=== PATIENT | male | born 1950 | race Asian ===

== ENCOUNTER 2021-07-09 07:30 | Inpatient (IN) | payer MEDICARE, OTHER ==
[~2021-07-09] VITALS: Ht 165.1 cm; Wt 64.5 kg
[2021-07-09 08:22] LABS: COVID AG,FIA SOURCE NASAL SWAB
[2021-07-09 08:24] LABS: BASOPHILS % (AUTO) 0.7 % (0.0-2.0); EOSINOPHILS % (AUTO) 3.4 % (1.0-6.0); HEMATOCRIT 46.8 % (41-53); HEMOGLOBIN 15.6 g/dL (13.5-17.5); LYMPHOCYTES # (AUTO) 0.9 K/uL (1.0-4.8); LYMPHOCYTES % (AUTO) 14.7 % (22.0-44.0); MEAN CORPUSCULAR HEMOGLOBIN 32.1 pg (26.0-34.0); MEAN CORPUSCULAR HGB CONC 33.3 G/dL (31.0-37.0); MEAN CORPUSCULAR VOLUME 97 fL (80-100); MONOCYTES # (AUTO) 0.5 K/uL (0.1-1.0); MONOCYTES % (AUTO) 7.3 % (2.0-9.0); NEUTROPHILS # (AUTO) 4.7 K/uL (1.8-7.7); NEUTROPHILS % (AUTO) 73.9 % (40.0-70.0); PLATELET COUNT (AUTO) 237 K/uL (150-450); RED BLOOD CELL COUNT(AUTO) 4.85 MIL/uL (4.50-5.90); RED CELL DISTRIBUTION WIDTH 13.9 % (11.5-14.5)
[2021-07-09 08:30] LABS: POTASSIUM 3.8 mmol/L (3.5-5.1)
[2021-07-09 08:35] LABS: ALBUMIN 3.9 g/dL (3.4-5.0); BILIRUBIN,TOTAL 1.1 mg/dL (0.1-1.0)
[2021-07-09] MEDS ORDERED: ASPIRIN 81 MG CHEWABLE TABLET PO ONE (08:45)
[2021-07-09] MEDS ORDERED: METOPROLOL TARTRATE 50 MG TABLET PO ONE (08:45)
[2021-07-09] MEDS ORDERED: ACETAMINOPHEN 325 MG TABLET PO PRN (10:30)
[2021-07-09] MEDS ORDERED: MAGNESIUM HYDROXIDE SUSPENSION 30 ML UDCUP PO PRN (10:30)
[2021-07-09] MEDS ORDERED: MORPHINE SULFATE 2 MG/ML SYRINGE IVP PRN (10:30)
[2021-07-09] MEDS ORDERED: BISACODYL 10 MG RECTAL RECTAL SUPPOSITORY PR PRN (10:30)
[2021-07-09] MEDS ORDERED: ONDANSETRON HCL 4 MG/2 ML VIAL IVP PRN (10:30)
[2021-07-09] MEDS ORDERED: 0.9% SODIUM CHLORIDE 10 ML SYRINGE IVP PRN (10:30)
[2021-07-09] MEDS ORDERED: ZOLPIDEM TARTRATE 5 MG TABLET PO PRN (10:30)
[2021-07-09] MEDS ORDERED: HYDROCODONE/ACETAMINOPHEN 5-325 MG TABLET PO PRN (10:30)
[2021-07-09 11:07] VITALS: BP 119/87
[2021-07-09 15:26] VITALS: BP 128/96
[2021-07-09] MEDS: DEXTROSE 5%-0.45% SODIUM CHL 1,000 ML IV SCH (15:38)
[2021-07-09] MEDS: HEPARIN SODIUM,PORCINE 5,000 UNITS/ML VIAL SQ SCH ×2 (15:39→23:37)
[2021-07-09 19:31] VITALS: BP 130/97
[2021-07-09] MEDS: DOCUSATE SODIUM 100 MG CAPSULE PO SCH (19:55)
[2021-07-09 22:42] LABS: APPEARANCE,URINE CLEAR (CLEAR); BILIRUBIN,URINE NEGATIVE (NEGATIVE); GLUCOSE, URINE (UA) TRACE mg/dL (NEGATIVE); KETONES,URINE NEGATIVE (NEGATIVE); LEUKOCYTE ESTERASE ,URINE NEGATIVE (NEGATIVE); NITRATE,URINE NEGATIVE (NEGATIVE); OCCULT BLOOD,URINE SMALL (NEGATIVE); PROTEIN,URINE 300-600,SEE CONFIRM mg/dL (NEGATIVE); SPECIFIC GRAVITIY, URINE 1.026 (1.003-1.030); UROBILINOGEN,URINE <=1.0 mg/dL (<=1.0)
[2021-07-09 22:47] LABS: AMPHET/METH SCREEN,URINE NEGATIVE (NEGATIVE); BARBITURATE SCREEN, URINE NEGATIVE (NEGATIVE); BENZODIAZEPINES SCREEN,URINE NEGATIVE (NEGATIVE); CANNABINOID SCREEN,URINE NEGATIVE (NEGATIVE); COCAINE SCREEN,URINE NEGATIVE (NEGATIVE); METHADONE SCREEN, URINE NEGATIVE (NEGATIVE); OPIATE SCREEN,URINE NEGATIVE (NEGATIVE); PHENCYCLIDINE SCREEN,URINE NEGATIVE (NEGATIVE); SULFOSALICYLIC ACID,URINE 4+ (Negative)
[2021-07-09 22:53] LABS: RBC,URINE 0-2 /HPF (0-2)
[2021-07-09 22:54] LABS: AMORPHOUS SEDIMENT,UR Rare /LPF (None Seen); BACTERIA,URINE Rare /HPF (None Seen); MUCUS,URINE Rare LPF (None Seen); SQUAMOUS EPITHELIAL CELL,UR Few /LPF (None Seen); WBC,URINE 0-2 /HPF (0-5)
[2021-07-09 23:29] VITALS: BP 121/86
[2021-07-10 03:35] VITALS: BP 132/88
[2021-07-10] MEDS: DEXTROSE 5%-0.45% SODIUM CHL 1,000 ML IV SCH ×2 (04:26→18:55)
[2021-07-10 07:20] LABS: BASOPHILS % (AUTO) 0.9 % (0.0-2.0); EOSINOPHILS % (AUTO) 2.8 % (1.0-6.0); HEMATOCRIT 47.1 % (41-53); HEMOGLOBIN 15.6 g/dL (13.5-17.5); LYMPHOCYTES # (AUTO) 1.2 K/uL (1.0-4.8); LYMPHOCYTES % (AUTO) 20.3 % (22.0-44.0); MEAN CORPUSCULAR HEMOGLOBIN 32.1 pg (26.0-34.0); MEAN CORPUSCULAR HGB CONC 33.1 G/dL (31.0-37.0); MEAN CORPUSCULAR VOLUME 97 fL (80-100); MONOCYTES # (AUTO) 0.6 K/uL (0.1-1.0); MONOCYTES % (AUTO) 9.4 % (2.0-9.0); NEUTROPHILS % (AUTO) 66.6 % (40.0-70.0); PLATELET COUNT (AUTO) 223 K/uL (150-450); RED BLOOD CELL COUNT(AUTO) 4.85 MIL/uL (4.50-5.90); RED CELL DISTRIBUTION WIDTH 14.1 % (11.5-14.5)
[2021-07-10 07:38] LABS: ALBUMIN 3.6 g/dL (3.4-5.0); BILIRUBIN,TOTAL 1.3 mg/dL (0.1-1.0); CREATININE 1.87 mg/dL (0.60-1.30); MAGNESIUM 2.2 mg/dL (1.80-2.40); PHOSPHORUS 3.4 mg/dL (2.5-4.9); POTASSIUM 3.9 mmol/L (3.5-5.1); TOTAL PROTEIN, SERUM 7.4 g/dL (6.4-8.2)
[2021-07-10 07:51] VITALS: BP 144/103
[2021-07-10] MEDS: PANTOPRAZOLE SODIUM 40 MG DR TABLET PO SCH (08:37)
[2021-07-10] MEDS: DOCUSATE SODIUM 100 MG CAPSULE PO SCH ×2 (08:37→20:00)
[2021-07-10] MEDS: HEPARIN SODIUM,PORCINE 5,000 UNITS/ML VIAL SQ SCH ×3 (08:38→23:54)
[2021-07-10] MEDS ORDERED: FUROSEMIDE 20 MG/2 ML VIAL IVP SCH (09:00)
[2021-07-10 12:04] VITALS: BP 128/96
[2021-07-10 15:37] VITALS: BP 149/115
[2021-07-10 19:20] VITALS: BP 142/112
[2021-07-10 23:45] VITALS: BP 138/102
[2021-07-11 03:45] VITALS: BP 144/102
[2021-07-11 06:27] LABS: BASOPHILS % (AUTO) 0.6 % (0.0-2.0); EOSINOPHILS % (AUTO) 1.7 % (1.0-6.0); HEMATOCRIT 46.2 % (41-53); HEMOGLOBIN 15.1 g/dL (13.5-17.5); LYMPHOCYTES # (AUTO) 1.1 K/uL (1.0-4.8); LYMPHOCYTES % (AUTO) 15.7 % (22.0-44.0); MEAN CORPUSCULAR HEMOGLOBIN 31.9 pg (26.0-34.0); MEAN CORPUSCULAR HGB CONC 32.8 G/dL (31.0-37.0); MEAN CORPUSCULAR VOLUME 97 fL (80-100); MONOCYTES # (AUTO) 0.7 K/uL (0.1-1.0); MONOCYTES % (AUTO) 9.5 % (2.0-9.0); NEUTROPHILS % (AUTO) 72.5 % (40.0-70.0); PLATELET COUNT (AUTO) 215 K/uL (150-450); RED BLOOD CELL COUNT(AUTO) 4.74 MIL/uL (4.50-5.90); RED CELL DISTRIBUTION WIDTH 14.3 % (11.5-14.5)
[2021-07-11 06:34] LABS: CALCIUM, TOTAL 8.5 mg/dL (8.8-10.5); CREATININE 1.96 mg/dL (0.60-1.30); POTASSIUM 4.1 mmol/L (3.5-5.1)
[2021-07-11 06:35] LABS: HEMOGLOBIN A1C 5.8 % (3.8-5.6)
[2021-07-11] MEDS: DOCUSATE SODIUM 100 MG CAPSULE PO SCH ×2 (07:35→20:35)
[2021-07-11] MEDS: DEXTROSE 5%-0.45% SODIUM CHL 1,000 ML IV SCH (07:36)
[2021-07-11] MEDS: HEPARIN SODIUM,PORCINE 5,000 UNITS/ML VIAL SQ SCH ×2 (07:36→15:26)
[2021-07-11] MEDS: PANTOPRAZOLE SODIUM 40 MG DR TABLET PO SCH (07:36)
[2021-07-11 07:50] VITALS: BP 146/101
[2021-07-11 11:38] VITALS: BP 150/110
[2021-07-11] MEDS ORDERED: AmLODIPine BESYLATE 5 MG TABLET PO SCH (13:15)
[2021-07-11] MEDS ORDERED: LOPERAMIDE HCL 2 MG CAPSULE PO PRN (13:45)
[2021-07-11] MEDS ORDERED: SODIUM CHLORIDE 0.9% 500 ML IV ONE (13:45)
[2021-07-11 16:01] VITALS: BP 142/112
[2021-07-11 20:12] VITALS: BP 136/94
[2021-07-11] MEDS: CARVEDILOL 3.125 MG TABLET PO SCH (20:35)
[2021-07-11 23:47] VITALS: BP 107/72
[2021-07-12] MEDS: HEPARIN SODIUM,PORCINE 5,000 UNITS/ML VIAL SQ SCH ×2 (00:12→08:18)
[2021-07-12 05:05] VITALS: BP 133/89
[2021-07-12 06:47] LABS: BASOPHILS % (AUTO) 1.4 % (0.0-2.0); EOSINOPHILS % (AUTO) 3.1 % (1.0-6.0); HEMATOCRIT 44.7 % (41-53); HEMOGLOBIN 14.8 g/dL (13.5-17.5); LYMPHOCYTES # (AUTO) 0.6 K/uL (1.0-4.8); LYMPHOCYTES % (AUTO) 8.2 % (22.0-44.0); MEAN CORPUSCULAR HGB CONC 33.2 G/dL (31.0-37.0); MEAN CORPUSCULAR VOLUME 97 fL (80-100); MONOCYTES # (AUTO) 0.5 K/uL (0.1-1.0); MONOCYTES % (AUTO) 7.6 % (2.0-9.0); NEUTROPHILS # (AUTO) 5.4 K/uL (1.8-7.7); NEUTROPHILS % (AUTO) 79.7 % (40.0-70.0); PLATELET COUNT (AUTO) 200 K/uL (150-450); RED BLOOD CELL COUNT(AUTO) 4.63 MIL/uL (4.50-5.90); RED CELL DISTRIBUTION WIDTH 14.3 % (11.5-14.5)
[2021-07-12 07:06] LABS: CALCIUM, TOTAL 8.7 mg/dL (8.8-10.5); CHOL/HDL RATIO 6.2 (4.2-7.3); CREATININE 1.86 mg/dL (0.60-1.30); POTASSIUM 4.3 mmol/L (3.5-5.1)
[2021-07-12 07:07] LABS: IGM (IMMUNOFIXATION) 28 mg/dL (15-143)
[2021-07-12 07:38] LABS: CHOL/HDL RATIO 6.3 (4.2-7.3)
[2021-07-12 07:49] VITALS: BP 147/106
[2021-07-12] MEDS: CARVEDILOL 3.125 MG TABLET PO SCH (08:18)
[2021-07-12] MEDS: DOCUSATE SODIUM 100 MG CAPSULE PO SCH (08:18)
[2021-07-12] MEDS: PANTOPRAZOLE SODIUM 40 MG DR TABLET PO SCH (08:18)
[2021-07-12] MEDS ORDERED: LOSARTAN POTASSIUM 25 MG TABLET PO SCH (09:00)
[2021-07-12 11:19] VITALS: BP 103/71
[2021-07-12] MEDS ORDERED: CARV3 PO (12:44)
[2021-07-12] MEDS ORDERED: LOSA25TA2 PO (12:44)
[2021-07-12] MEDS ORDERED: ATORVASTATIN CALCIUM 40 MG TABLET PO SCH (14:00)
[2021-07-13 14:06] LABS: ALBUMIN URINE (ELP) 77.3 %
== END 2021-07-12 14:05 | disposition home or self-care (01) | DRG 682 ==
LOC: EMS 07:30 → 5S 09:30
PROVIDERS: ADMIT Internal Medicine; ATTEND Internal Medicine
DX: N17.9 Acute kidney failure, unspecified (principal); I50.23 Acute on chronic systolic (congestive) heart failure; I24.9 Acute ischemic heart disease, unspecified; I13.0 Hypertensive heart and chronic kidney disease with heart failure and stage 1 through stage 4 chronic kidney disease, or unspecified chronic kidney disease; I42.9 Cardiomyopathy, unspecified; K59.00 Constipation, unspecified; E78.5 Hyperlipidemia, unspecified; K40.90 Unilateral inguinal hernia, without obstruction or gangrene, not specified as recurrent; E78.00 Pure hypercholesterolemia, unspecified; Z20.822 Contact with and (suspected) exposure to COVID-19; N18.9 Chronic kidney disease, unspecified; Z91.14 Patient's other noncompliance with medication regimen; Z79.899 Other long term (current) drug therapy
CPT/HCPCS: 74022; 74176; 76770; 80048; 80053; 80061; 80307; 81001; 81002; 82570; 82784; 83036; 83690; 83735; 83880; 84100; 84156; 84166; 84484; 85025; 86160; 86334; 93005; 93306; 99285; J1644; J7040

== ENCOUNTER 2021-07-14 08:31 | Inpatient (IN) | payer MEDICARE, OTHER ==
[~2021-07-14] VITALS: Ht 165.1 cm; Wt 58.8 kg
[~2021-07-14 08:31] MED LIST: CARV3 PO; LOSA25TA2 PO
[2021-07-14 09:28] LABS: BASOPHILS % (AUTO) 1.2 % (0.0-2.0); EOSINOPHILS % (AUTO) 4.4 % (1.0-6.0); HEMATOCRIT 46.2 % (41-53); HEMOGLOBIN 15.2 g/dL (13.5-17.5); LYMPHOCYTES # (AUTO) 1.1 K/uL (1.0-4.8); LYMPHOCYTES % (AUTO) 18.8 % (22.0-44.0); MEAN CORPUSCULAR HEMOGLOBIN 31.9 pg (26.0-34.0); MEAN CORPUSCULAR HGB CONC 32.9 G/dL (31.0-37.0); MEAN CORPUSCULAR VOLUME 97 fL (80-100); MONOCYTES # (AUTO) 0.6 K/uL (0.1-1.0); MONOCYTES % (AUTO) 9.1 % (2.0-9.0); NEUTROPHILS % (AUTO) 66.5 % (40.0-70.0); PLATELET COUNT (AUTO) 230 K/uL (150-450); RED BLOOD CELL COUNT(AUTO) 4.77 MIL/uL (4.50-5.90); RED CELL DISTRIBUTION WIDTH 14.4 % (11.5-14.5)
[2021-07-14 09:38] LABS: CREATININE 2.15 mg/dL (0.60-1.30); POTASSIUM 4.3 mmol/L (3.5-5.1)
[2021-07-14 09:49] LABS: INR 1.1 (0.9-1.1); PROTHROMBIN TIME 11.3 SEC (9.4-11.6)
[2021-07-14] MEDS ORDERED: ATOR40TA71 PO (09:49)
[2021-07-14 10:03] LABS: ALBUMIN 3.6 g/dL (3.4-5.0); BILIRUBIN,TOTAL 1.1 mg/dL (0.1-1.0); TOTAL PROTEIN, SERUM 7.4 g/dL (6.4-8.2)
[2021-07-14] MEDS ORDERED: ACETAMINOPHEN 325 MG TABLET PO PRN (11:30)
[2021-07-14] MEDS ORDERED: ONDANSETRON HCL 4 MG/2 ML VIAL IVP PRN (11:30)
[2021-07-14] MEDS: FAMOTIDINE 20 MG TABLET PO SCH (11:36)
[2021-07-14] MEDS: CARVEDILOL 12.5 MG TABLET PO SCH ×2 (11:36→21:01)
[2021-07-14 12:50] LABS: COVID AG,FIA SOURCE NASAL SWAB
[2021-07-14 14:13] LABS: APPEARANCE,URINE CLEAR (CLEAR); BILIRUBIN,URINE NEGATIVE (NEGATIVE); GLUCOSE, URINE (UA) NEGATIVE (NEGATIVE); KETONES,URINE NEGATIVE (NEGATIVE); LEUKOCYTE ESTERASE ,URINE NEGATIVE (NEGATIVE); NITRATE,URINE NEGATIVE (NEGATIVE); OCCULT BLOOD,URINE TRACE (NEGATIVE); PH,URINE 5.5 (5.0-8.0); PROTEIN,URINE 100-200,SEE CONFIRM mg/dL (NEGATIVE); SPECIFIC GRAVITIY, URINE 1.011 (1.003-1.030); UROBILINOGEN,URINE <=1.0 mg/dL (<=1.0)
[2021-07-14 14:18] LABS: BACTERIA,URINE None Seen /HPF (None Seen); RBC,URINE 0-2 /HPF (0-2); SULFOSALICYLIC ACID,URINE 2+ (Negative); WBC,URINE None Seen /HPF (0-5)
[2021-07-14 14:22] VITALS: BP 121/89
[2021-07-14 20:13] VITALS: BP 113/87
[2021-07-14] MEDS: ATORVASTATIN CALCIUM 20 MG TABLET PO SCH (21:01)
[2021-07-14] MEDS: DOCUSATE SODIUM 100 MG CAPSULE PO SCH (21:01)
[2021-07-14] MEDS: HEPARIN SODIUM,PORCINE 5,000 UNITS/ML VIAL SQ SCH (21:01)
[2021-07-15 00:16] VITALS: BP 110/78
[2021-07-15 05:15] VITALS: BP 123/85
[2021-07-15 06:49] LABS: CALCIUM, TOTAL 8.7 mg/dL (8.8-10.5); CREATININE 1.95 mg/dL (0.60-1.30); POTASSIUM 4.3 mmol/L (3.5-5.1)
[2021-07-15 07:59] VITALS: BP 133/75
[2021-07-15] MEDS: CARVEDILOL 12.5 MG TABLET PO SCH ×2 (10:54→21:25)
[2021-07-15] MEDS: HEPARIN SODIUM,PORCINE 5,000 UNITS/ML VIAL SQ SCH ×2 (10:54→21:25)
[2021-07-15] MEDS: FAMOTIDINE 20 MG TABLET PO SCH (10:54)
[2021-07-15] MEDS: DOCUSATE SODIUM 100 MG CAPSULE PO SCH ×2 (10:54→21:25)
[2021-07-15] MEDS: ASPIRIN 81 MG CHEWABLE TABLET PO SCH (10:56)
[2021-07-15 11:50] VITALS: BP 110/77
[2021-07-15 19:15] VITALS: BP 108/79
[2021-07-15] MEDS: ATORVASTATIN CALCIUM 20 MG TABLET PO SCH (21:25)
[2021-07-15 23:40] VITALS: BP 101/70
[2021-07-16 03:35] VITALS: BP 103/69
[2021-07-16 08:36] VITALS: BP 125/91
[2021-07-16] MEDS: FAMOTIDINE 20 MG TABLET PO SCH (08:48)
[2021-07-16] MEDS: ASPIRIN 81 MG CHEWABLE TABLET PO SCH (08:48)
[2021-07-16] MEDS: DOCUSATE SODIUM 100 MG CAPSULE PO SCH (08:48)
[2021-07-16] MEDS: CARVEDILOL 12.5 MG TABLET PO SCH (08:48)
[2021-07-16] MEDS: HEPARIN SODIUM,PORCINE 5,000 UNITS/ML VIAL SQ SCH (08:49)
[2021-07-16 11:25] VITALS: BP 110/80
== END 2021-07-16 15:05 | disposition home or self-care (01) | DRG 313 ==
LOC: EMS 08:31 → UNDOADMIN 12:48 → 5S 12:48
PROVIDERS: ADMIT Internal Medicine; ATTEND Internal Medicine
DX: R07.89 Other chest pain (principal); I13.0 Hypertensive heart and chronic kidney disease with heart failure and stage 1 through stage 4 chronic kidney disease, or unspecified chronic kidney disease; N17.9 Acute kidney failure, unspecified; I42.9 Cardiomyopathy, unspecified; I50.22 Chronic systolic (congestive) heart failure; E78.5 Hyperlipidemia, unspecified; N18.9 Chronic kidney disease, unspecified; K40.90 Unilateral inguinal hernia, without obstruction or gangrene, not specified as recurrent; Z20.822 Contact with and (suspected) exposure to COVID-19; E78.00 Pure hypercholesterolemia, unspecified; I34.0 Nonrheumatic mitral (valve) insufficiency; Z93.1 Gastrostomy status
CPT/HCPCS: 71045; 80048; 80053; 81001; 81002; 82550; 83735; 83880; 84484; 85025; 85610; 85730; 86850; 86900; 86901; 87081; 93005; 99285; J1644; 36415-L1; 36415-TC